=== PATIENT | male | born 1970 | race Caucasian/White ===

== ENCOUNTER 2016-09-14 05:41 | Day surgery (SDC) | payer MEDICAID ==
[2016-09-14] MEDS ORDERED: Sodium Chloride 0.9% 1,000 ML IV SCH (06:30)
[2016-09-14] MEDS ORDERED: Propofol 200 MG/20 ML SDV ONE (06:50)
[2016-09-14] MEDS ORDERED: fentaNYL 100 MCG/2 ML SDV ONE (06:50)
[2016-09-14] MEDS ORDERED: Midazolam 1 MG/ML 2 ML SDV ONE (06:50)
--- NOTE | 2016-09-14 07:42 | PCM.OPNOTE ---
- General Post-Op/Procedure Note Date of Surgery/Procedure: 09/14/16 Operative Procedure(s): Colonoscopy with polypectomy-4 polyps snared Findings: 4 polyps 25, 15 and 2 at 5 cm Pre Op Diagnosis: Family history colon cancer, father Post-Op Diagnosis: For polyps snared 25 cm, 15 cm and 2 at 5 cm all sent to pathology Primary Surgeon: Ac Armenta Sr Condition: Good Free Text/Narrative:: Abdias is a 45-year-old white male who has a family history of colon cancer. His father is suffering from colon cancer in his 50s. The risks and benefits were explained to the patient and was done as an outpatient in the or. Anesthesia was given by the nursing assistance. During the procedure we used 100 mcg of fentanyl 2 mL of Versed and 200 mg of propofol. The Olympus 180L scope was used. With the gloved finger the rectum was examined and the prostate was a grade 3/6 symmetrical and soft. We then placed the tube in the rectum and advanced under direct vision at 25 cm noted a polyp this was snared and removed and there was no bleeding. Advanced the scope did get to the cecum. Picture was taken of the cecum. We slowly retracted the tube at 25 cm there were no bleeding noted from the first polyp removal. At 15 cm noted another polyp this was snared and removed and there is no bleeding. The tube noted at 5 cm each one was removed 1 we had to cauterize and no bleeding was noted after cauterization. Both areas were preserved with a photo and there is no bleeding. The colon otherwise revealed no acute pathology. The tube was removed the patient tolerated the procedure well. Preop: Family history colon cancer. Postop: For polyps removed 2 at 5 cm one at 15 cm and 1 at 25 cm Pathology report of each is pending. This gentleman is to have another colonoscopy in 3 years.
[2016-09-14 08:19] VITALS: BP 138/91
== END 2016-09-14 08:35 | disposition home or self-care (01) ==
LOC: JP.SDS 05:41
PROVIDERS: ATTEND Internal Medicine
PROC: 0DJD8ZZ Inspection of Lower Intestinal Tract, Via Natural or Artificial Opening Endoscopic (ICD-10-PCS; principal; 2016-09-14)
DX: Z12.11 Encounter for screening for malignant neoplasm of colon (principal); Z83.71 Family history of colonic polyps; D12.6 Benign neoplasm of colon, unspecified
CPT/HCPCS: 45378; J2250; J2704; J3010; J7040; 88305

== ENCOUNTER 2016-09-18 21:44 | Emergency (ER) | payer MEDICAID ==
[2016-09-18 22:02] VITALS: BP 147/101
--- NOTE | 2016-09-18 22:34 | EDM.PDOC ---
ED HPI Trauma - General Chief Complaint: Upper Extremity Injury/Pain Stated Complaint: RT HAND REDNESS/COLD Time Seen by Provider: 09/18/16 22:24 Source: Reports: Patient, RN notes reviewed History Limitations: Reports: No limitations - History of Present Illness INITIAL COMMENTS - FREE TEXT/NARRATIVE: Here with his Chief complaint Redness right hand HPI 45-year-old male underwent screening colonoscopy 4 days ago. He did this because of family history of colon cancer in his father who at age 70 needed 3 feet resected from his intestine. 4 polyps found, they are to call next week to get the report. He's been back to work using his hand normally but noticed redness and a cold sensation on the dorsum of his right hand where the IV had been inserted. No particular pain. He's been able to use it normally. The cold this has resolved but he still has some redness of the dorsum of the right hand. No pain or itching No other concerns at the present time Allergies/ADRs: Allergies No Known Allergies Allergy (Verified 09/18/16 21:59) Home Medications: Ambulatory Orders Losartan Potassium 50 mg PO DAILY 09/12/16 [Confirmed 09/14/16] Past Medical History HEENT History: Reports: Impaired vision, Other (see below) Other HEENT History: ringing in the ears x 10 yrs. Cardiovascular History: Reports: Hypertension Gastrointestinal History: Reports: GERD Other Gastrointestinal History: heartburn Genitourinary History: Reports: Renal calculus Musculoskeletal History: Reports: Fracture Neurological History: Reports: Concussion Psychiatric History: Reports: Addiction Dermatologic History: Reports: Other (see below) Other Dermatologic History: rash generalized over body for 5-6 years - Past Surgical History Cardiovascular Surgical History: Reports: None GI Surgical History: Reports: Colonoscopy Other Male Surgeries/Procedures: right stent placement Neurological Surgical History: Reports: Other (see below) Other Neurological Surgeries/Procedures: broken vertebrae years ago. Social & Family History - Tobacco Use Smoking Status *Q: Current Every Day Smoker Years of Tobacco use: 23 Packs/Tins Daily: 0.5 Second Hand Smoke Exposure: Yes - Caffeine Use Caffeine Use: Reports: Coffee, Soda - Alcohol Use Days Per Week of Alcohol Use: 7 Number of Drinks Per Day: 4 Total Drinks Per Week: 28 - Recreational Drug Use Recreational Drug Use: Yes Drug Use in Last 12 Months: No Recreational Drug Type: Reports: Methamphetamine Recreational Drug Use Frequency: Not Used In Over 6 Months Review of Systems - Review of Systems Review Of Systems: See Below Constitutional: Reports: no symptoms Eyes: Reports: no symptoms Respiratory: Reports: No Symptoms Cardiovascular: Reports: no symptoms GI/Abdominal: Reports: No symptoms Genitourinary: Reports: no symptoms Skin: Reports: erythema (Redness on the dorsum right hand) Trauma Exam - Physical Exam Exam: See Below Exam Limited By: No limitations General Appearance: Reports: alert, no apparent distress, other (Normal) Head: Reports: atraumatic ( temperature, mild elevation blood pressure), normocephalic Respiratory Exam: Reports: no respiratory distress, no accessory muscle use Cardiovascular: Reports: normal peripheral pulses, regular rate, rhythm Extremities: Reports: other (Dusky red appearance to the dorsum of the right hand.Veins are intact, no thrombosis noted.No lymphangitis or cellulitis, no tenderness, no itching.) Course - Vital Signs Last Recorded V/S: Last Vital Signs Temp 36.9 C 09/18/16 22:00 Pulse 104 H 09/18/16 22:00 Resp 18 09/18/16 22:00 BP 147/101 H 09/18/16 22:00 Pulse Ox 95 09/18/16 22:00 - Re-Assessments/Exams Free Text/Narrative Re-Assessment/Exam: 09/18/16 22:38 45-year-old male who developed redness over the dorsum of his right hand, 4 days after intravenous was placed for colonoscopy. Asymptomatic currently Likely a superficial reaction possibly superficial phlebitis from intravenous. No evidence of clot or infection at this point. Symptomatic treatment, no treatment actually needed and he is not having any symptoms. See discharge instructions Get rechecked if increased pain, swelling, or any symptoms develop Departure - Departure Time of Disposition: 22:32 Disposition: Home, Self-Care 01 Condition: good Clinical Impression: Phlebitis of superficial vein of upper extremity Instructions: Phlebitis, [id number] Referrals: Ac Armenta Sr, MD [Primary Care Provider] - Forms: ED Department Discharge Additional Instructions: This is local inflammation of the vein and surrounding tissues from an intravenous. There is no evidence of blood clot or infection at this point If uncomfortable, can be treated with either warm and or cold packs, ibuprofen or acetaminophen. If there is no pain or discomfort no treatment is needed as it will resolve spontaneously Get rechecked becoming painful, that she's going for up the arm or other new symptoms develop
== END 2016-09-18 22:39 | disposition home or self-care (01) ==
LOC: JP.ED 21:44
DX: I80.8 Phlebitis and thrombophlebitis of other sites (principal); I10 Essential (primary) hypertension; F17.210 Nicotine dependence, cigarettes, uncomplicated; Z79.899 Other long term (current) drug therapy; Z98.890 Other specified postprocedural states
CPT/HCPCS: 99283

== ENCOUNTER 2016-12-09 20:05 | Emergency (ER) | payer MEDICAID ==
[2016-12-09 20:41] VITALS: BP 130/88
--- NOTE | 2016-12-09 22:06 | EDM.PDOC ---
ED HPI GENERAL MEDICAL PROBLEM - General Chief Complaint: Upper Extremity Injury/Pain Stated Complaint: FELL HURT WRIST Time Seen by Provider: 12/09/16 21:16 Source of Information: Reports: Patient History Limitations: Reports: No Limitations - History of Present Illness INITIAL COMMENTS - FREE TEXT/NARRATIVE: History of present illness: [46-year-old male presents complaining of right wrist pain. He was on the boat and trying to get off the boat and fell backwards onto some concrete and struck the back of his right wrist. He had no other injuries his only complaint is right wrist pain. This happened earlier today.] Review of systems: As per history of present illness and below otherwise all systems reviewed and negative. Past medical history: As per history of present illness and as reviewed below otherwise noncontributory. Surgical history: As per history of present illness and as reviewed below otherwise noncontributory. Social history: No reported history of drug or alcohol abuse. Family history: As per history of present illness and as reviewed below otherwise noncontributory. Physical exam: HEENT: Atraumatic, normocephalic, Lungs: Clear to auscultation Heart: S1S2, regular Abdomen: Soft, nondistended, nontender. Extremities: examination of the right wrist does reveal he has definitive pain in the snuffbox no swelling or deformity is noted though. He has some posterior wrist pain as well range of motion seems full without crepitation. Neuro: Awake, alert, oriented. Cranial nerves II through XII unremarkable. Cerebellum unremarkable. Motor and sensory unremarkable throughout. Exam nonfocal. Diagnostics: [x-rays of the wrist reveal no fractures are appreciated] Therapeutics: [] Impression: [right wrist injury] Plan: [given the fact that he has pain in the snuffbox it did put him in a gutter splint incorporated his thumb and will have him followup with orthopedics] Definitive disposition and diagnosis as appropriate pending reevaluation and review of above. Right Wrist Pain Score (Numeric/FACES): 5 - Related Data Allergies Allergy/AdvReac Type Severity Reaction Status Date / Time No Known Allergies Allergy Verified 12/09/16 20:41 Home Meds: Home Meds Losartan Potassium 50 mg PO DAILY 09/12/16 [History] Past Medical History HEENT History: Reports: Impaired Vision Other HEENT History: ringing in the ears x 10 yrs. Cardiovascular History: Reports: Hypertension Gastrointestinal History: Reports: GERD Other Gastrointestinal History: heartburn Genitourinary History: Reports: Renal Calculus Musculoskeletal History: Reports: Fracture Neurological History: Reports: Concussion Psychiatric History: Reports: Addiction Dermatologic History: Reports: Other (See Below) Other Dermatologic History: rash - Past Surgical History GI Surgical History: Reports: Colonoscopy Neurological Surgical History: Reports: Other (See Below) Social & Family History - Tobacco Use Smoking Status *Q: Current Every Day Smoker Years of Tobacco use: 20 Packs/Tins Daily: 0.5 Second Hand Smoke Exposure: Yes - Caffeine Use Caffeine Use: Reports: Coffee, Soda - Alcohol Use Days Per Week of Alcohol Use: 7 Number of Drinks Per Day: 4 Total Drinks Per Week: 28 - Recreational Drug Use Recreational Drug Use: No Drug Use in Last 12 Months: No Recreational Drug Type: Reports: Methamphetamine Recreational Drug Use Frequency: Not Used In Over 6 Months Review of Systems - Review of Systems Review Of Systems: ROS reveals no pertinent complaints other than HPI. ED EXAM, GENERAL - Physical Exam Exam: See Below Course - Vital Signs Last Recorded V/S: Last Vital Signs Temp 36.6 C 12/09/16 20:38 Pulse 87 12/09/16 20:38 Resp 16 12/09/16 20:38 BP 130/88 12/09/16 20:38 Pulse Ox 98 12/09/16 20:38 - Orders/Labs/Meds Orders: Active Orders 24 hr Category Date Time Status Wrist Comp Min 3V Rt [CR] Stat Exams 12/09/16 21:18 Taken Departure - Departure Time of Disposition: 22:04 Disposition: Home, Self-Care 01 Condition: good Clinical Impression: Right wrist injury Qualifiers: Encounter type: initial encounter Qualified Code(s): S69.91XA - Unspecified injury of right wrist, hand and finger(s), initial encounter - Discharge Information Forms: ED Department Discharge Additional Instructions: your discharge instructions should include to how to followup with the orthopedic clinic. I would followup with them as soon as you can get in. We' ve discovered to be placed on telemetry are seen by the orthopedic doctor. The concern is that small bone that we talked about where you had pain called the snuff box. - My Orders Last 24 Hours: My Active Orders 12/09/16 21:18 Wrist Comp Min 3V Rt [CR] Stat - Assessment/Plan Last 24 Hours: My Active Orders 12/09/16 21:18 Wrist Comp Min 3V Rt [CR] Stat
--- NOTE | 2016-12-10 13:30 | CR ---
Wrist Comp Min 3V Rt INDICATION: fall, pain FINDINGS: Negative right wrist.
== END 2016-12-09 22:19 | disposition home or self-care (01) ==
LOC: JP.ED 20:05
DX: S69.91XA Unspecified injury of right wrist, hand and finger(s), initial encounter (principal); I10 Essential (primary) hypertension; K21.9 Gastro-esophageal reflux disease without esophagitis; F17.210 Nicotine dependence, cigarettes, uncomplicated; Z79.899 Other long term (current) drug therapy; W18.09XA Striking against other object with subsequent fall, initial encounter
CPT/HCPCS: 29125; 73110-26-RT; 73110-RT; 99284-25

== ENCOUNTER 2019-08-03 23:10 | Emergency (ER) | payer OTHER ==
[2019-08-03 23:29] VITALS: BP 150/109; PULSE 127
[2019-08-03] MEDS ORDERED: Amoxicillin/Clavulanate K 500-125 MG Tab PO ONE (23:49)
[2019-08-03] MEDS ORDERED: Acetaminophen Soln 650 MG/20.3 ML UD Cup PO ONE (23:50)
[2019-08-03] MEDS ORDERED: oxyCODONE 5 MG Tab PO ONE (23:50)
--- NOTE | 2019-08-03 23:54 | EDM.PDOC ---
ED HPI GENERAL MEDICAL PROBLEM - General Chief Complaint: ENT Problem Stated Complaint: LEFT ACID SPLICER JAW SWELLING Time Seen by Provider: 08/03/19 23:15 Source of Information: Reports: Patient History Limitations: Reports: No Limitations - History of Present Illness INITIAL COMMENTS - FREE TEXT/NARRATIVE: 48 yo who presents with concerns of left lower tooth pain Has some discomfort earlier this morning. This evening noticed he was started to have swelling around a left lower molar No fevers. No difficulty breathing or swallowing. Pain is an ache, minimal in radiation, moderate severity. left lower jaw Pain Score (Numeric/FACES): 7 - Related Data Allergies Allergy/AdvReac Type Severity Reaction Status Date / Time No Known Allergies Allergy Verified 08/03/19 23:23 Home Meds: Home Meds Amoxicillin/Clavulanate K [Augmentin 875-125 MG] 1 tab PO Q12HR #14 tablet 08/04 [Rx] Past Medical History HEENT History: Reports: Impaired Vision Other HEENT History: ringing in the ears Cardiovascular History: Reports: Hypertension Gastrointestinal History: Reports: GERD Other Gastrointestinal History: heartburn Genitourinary History: Reports: Renal Calculus Musculoskeletal History: Reports: Fracture Neurological History: Reports: Concussion Psychiatric History: Reports: Addiction Dermatologic History: Reports: Other (See Below) Other Dermatologic History: rash - Past Surgical History GI Surgical History: Reports: Colonoscopy Musculoskeletal Surgical History: Reports: Shoulder Surgery Social & Family History - Tobacco Use Smoking Status *Q: Current Every Day Smoker Years of Tobacco use: 32 Packs/Tins Daily: 0.5 - Caffeine Use Caffeine Use: Reports: Coffee, Soda - Alcohol Use Days Per Week of Alcohol Use: 2 Number of Drinks Per Day: 5 Total Drinks Per Week: 10 - Recreational Drug Use Recreational Drug Use: No ED ROS ENT - Review of Systems Review Of Systems: See Below Constitutional: Reports: No Symptoms HEENT: Reports: Other (tooth pain) Respiratory: Reports: No Symptoms Cardiovascular: Reports: No Symptoms Endocrine: Reports: No Symptoms GI/Abdominal: Reports: No Symptoms : Reports: No Symptoms Musculoskeletal: Reports: No Symptoms Skin: Reports: No Symptoms Neurological: Reports: No Symptoms Psychiatric: Reports: No Symptoms Hematologic/Lymphatic: Reports: No Symptoms Immunologic: Reports: No Symptoms ED EXAM, ENT - Physical Exam Exam: See Below Exam Limited By: No Limitations General Appearance: Alert, No Apparent Distress Ears: Normal External Exam Nose: Normal Inspection, Normal Mucousa Mouth/Throat: Other (left lower molar dental lizzette, tenderness to percussion, some swelling lateral to this without obvious abscess. No submadibular fullness. ) Head: Atraumatic, Normocephalic Neck: Normal Inspection, Supple, Non-Tender Respiratory/Chest: Lungs Clear Cardiovascular: Regular Rate, Rhythm GI/Abdominal: Soft, Non-Tender Back: Normal Inspection Neurological: Alert, Oriented Psychiatric: Normal Affect, Normal Mood Skin: Warm, Dry Course - Vital Signs Last Recorded V/S: Last Vital Signs Temp 36.8 C 08/03/19 23:28 Pulse 127 H 08/03/19 23:28 Resp 18 08/03/19 23:28 BP 150/109 H 08/03/19 23:28 Pulse Ox 98 08/03/19 23:28 - Orders/Labs/Meds Meds: Medications Discontinued Medications Generic Name Dose Route Start Last Admin Trade Name Freq PRN Reason Stop Dose Admin Acetaminophen 650 mg 08/03/19 23:50 Tylenol PO 08/03/19 23:51 ONETIME ONE Acetaminophen 650 mg 08/03/19 23:58 08/04/19 00:07 Tylenol PO 08/03/19 23:59 650 mg NOW ONE Administration Amoxicillin/Clavulanate Potassium 1 tab 08/03/19 23:49 08/04/19 00:07 Augmentin 500 Mg\125 Mg PO 08/03/19 23:50 1 tab ONETIME ONE Administration Oxycodone HCl 5 mg 08/03/19 23:50 08/04/19 00:06 Oxycodone PO 08/03/19 23:51 5 mg ONETIME ONE Administration - Re-Assessments/Exams Free Text/Narrative Re-Assessment/Exam: 48 yo presents with left lower molar tooth pain at site of cavity. Does have some associated swelling but no drainable abscess. Overall well appearing. No evidence of deep space neck infection or ludwigs. Given script for augmentin, dental referral, single dose of oxycodone here in the ED otherwise plan for apap and ibuprofen for pain. Discharged. 08/04/19 01:03 Departure - Departure Time of Disposition: 23:52 Disposition: Home, Self-Care 01 Clinical Impression: Dental infection - Discharge Information Prescriptions: Amoxicillin/Clavulanate K [Augmentin 875-125 MG] 1 tab PO Q12HR #14 tablet Instructions: Dental Abscess, [id number] Referrals: PCP,None [Primary Care Provider] - Forms: ED Department Discharge Additional Instructions: Please take the prescribed antibiotics. We have made a follow up appointment in the dental clinic for Saturday, please call to cancel if you don't need this. See a physician for fevers, difficulty swallowing/breathing, or other symptoms which are concerning to you. Sepsis Event Note - Evaluation Sepsis Screening Result: No Definite Risk - Focused Exam Vital Signs: Vital Signs Temp Pulse Resp BP Pulse Ox 08/03/19 23:28 36.8 C 127 H 18 150/109 H 98 Date Exam was Performed: 08/04/19 Time Exam was Performed: 00:59
[2019-08-03] MEDS ORDERED: Acetaminophen 325 MG Tab PO ONE (23:58)
== END 2019-08-04 00:16 | disposition home or self-care (01) ==
LOC: JP.ED 23:10
DX: K04.7 Periapical abscess without sinus (principal); F17.210 Nicotine dependence, cigarettes, uncomplicated
CPT/HCPCS: 99282; A9270

== ENCOUNTER 2021-04-18 04:56 | Emergency (ER) | payer OTHER ==
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
[2021-04-18] MEDS ORDERED: Sodium Chloride 0.9% 1,000 ML IV SCH (06:30)
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
[2021-04-18 08:13] VITALS: BP 149/110; PULSE 105
--- NOTE | 2021-04-18 09:06 | CR ---
Humerus Rt, Chest 1V Frontal CLINICAL HISTORY: Trauma FINDINGS: There is no acute fracture within the humerus. IMPRESSION: Negative right humerus.
--- NOTE | 2021-04-18 09:06 | CR ---
Humerus Rt, Chest 1V Frontal CLINICAL HISTORY: Trauma FINDINGS: There is no acute fracture within the humerus. IMPRESSION: Negative right humerus.
== END 2021-04-18 08:15 | disposition home or self-care (01) ==
LOC: JP.ED 04:56
DX: S06.0X1A Concussion with loss of consciousness of 30 minutes or less, initial encounter (principal); S02.2XXA Fracture of nasal bones, initial encounter for closed fracture; S02.5XXB Fracture of tooth (traumatic), initial encounter for open fracture; N17.9 Acute kidney failure, unspecified; R74.02 Elevation of levels of lactic acid dehydrogenase [LDH]; K21.9 Gastro-esophageal reflux disease without esophagitis; I10 Essential (primary) hypertension; Z72.0 Tobacco use; Y04.2XXA Assault by strike against or bumped into by another person, initial encounter
CPT/HCPCS: 36415; 70450; 70486; 71045; 72125; 73060; 80053; 80307; 83605; 84484; 85025; 85610; 85730; 99285; J7030

== ENCOUNTER 2021-12-06 20:12 | Emergency (ER) | payer OTHER ==
[2021-12-06 21:16] VITALS: BP 151/108; PULSE 107
[2021-12-06] MEDS: Lidocaine 1% 5 ML VIAL INJECT ONE (22:12)
== END 2021-12-06 22:24 | disposition home or self-care (01) ==
LOC: JP.ED 20:12
DX: L02.811 Cutaneous abscess of head [any part, except face] (principal); I10 Essential (primary) hypertension; F17.210 Nicotine dependence, cigarettes, uncomplicated; Z79.899 Other long term (current) drug therapy
CPT/HCPCS: 10060; 87070; 87077; 87186; 87205; 99281; 99282-25